=== PATIENT | male | born 1975 | race Caucasian/White ===

== ENCOUNTER 2016-12-25 20:50 | Emergency (ER) | payer MEDICAID, OTHER ==
[2016-12-25 23:27] VITALS: BP 147/82; PULSE 67; TEMP 98.9
[2016-12-25] MEDS ORDERED: LIDOCAINE 1% (MDV) 20 ML INJ SC ONE (23:30)
[2016-12-25] MEDS ORDERED: DIPHTH/TET/ACEL PERTUSS (ADULT) 0.5 ML VIAL IM* ONE (23:30)
--- NOTE | 2016-12-26 01:26 | RADRPT ---
PROCEDURE: CT Brain without contrast. CLINICAL INDICATION: Trauma, headache. TECHNIQUE: A CT of the brain was performed utilizing axial sections from the skull base through th e vertex without contrast. Multiplanar re-formations were generated. Images were reviewed on a high- resolution PACS workstation. CTDIvol: 45.01 mGy. DLP: 720.23 mGy-cm. One or more of the following dose reduction techniques were used: - Automated exposure control. - Adjustment of the mA and/or kV according to patient size. - Use of iterative reconstruction technique. COMPARISON: None available FINDINGS: The sulci are normal size for the patient's age. No hydrocephalus is seen. There is no mass effect. No acute intracranial hemorrhage is identified. There is no extra-axial collection. Evans-white mann er differentiation is preserved. There is mild mucosal disease in the paranasal sinuses. The visualized mastoid air cells are clear. The ossesous structures are unremarkable. There is soft tissue swelling along both sides of the fac e and anterior calvarium. IMPRESSION: 1. No acute intracranial pathology. RPTAT: HTAR .Vicente Ruiz MD, Date Time Electronically viewed and signed by .Vicente Ruiz MD, MD on 12/26/2016 01:25 .R/
--- NOTE | 2016-12-26 01:30 | RADRPT ---
PROCEDURE: CT scan facial bones CLINICAL INDICATION: Trauma, facial pain. TECHNIQUE: A CT of the facial bones was performed without intravenous contrast. Coronal and sagitt al reformats were generated. CTDIvol: 29.44 mGy. DLP: 561.98 mGy-cm. One or more of the following dose reduction techniques were used: - Automated exposure control. - Adjustment of the mA and/or kV according to patient size. - Use of iterative reconstruction technique. COMPARISON: Brain CT performed concurrently. FINDINGS: There is soft tissue swelling along both sides of the face, left more than right. Most of the patie nt's teeth are absent. Numerous dental caries and periapical lucencies are seen along the remaining dentition. There is no facial fracture. The intraorbital structures are normal. There is mild to m oderate mucosal thickening in the paranasal sinuses. The nasal cavity is clear. The visualized intra cranial soft tissues are within normal limits. IMPRESSION: 1. No facial fracture. 2. Numerous dental caries and periapical lucencies along the patient's remaining teeth. Referral to dentistry is recommended. RPTAT: HTAR .Vicente Ruiz MD, Date Time Electronically viewed and signed by .Vicente Ruiz MD, MD on 12/26/2016 01:29 .R/
--- NOTE | 2016-12-26 01:31 | RADRPT ---
PROCEDURE: CT cervical spine without contrast. CLINICAL INDICATION: Trauma, neck pain. TECHNIQUE: A CT of the cervical spine was performed without intravenous contrast. Coronal and sag ittal reformats were generated. CTDIvol: 22.32 mGy. DLP: 580.02 mGy-cm. One or more of the following dose reduction techniques were used: - Automated exposure control. - Adjustment of the mA and/or kV according to patient size. - Use of iterative reconstruction technique. COMPARISON: None. FINDINGS: There is reversal of the cervical lordosis. No spondylolisthesis is seen. The vertebral body height s are maintained. No fracture or subluxation is seen. The prevertebral soft tissues are normal. There is no significant degenerative change. The soft tissue structures of the neck are unremarkable. IMPRESSION: 1. No fracture or subluxation of the cervical spine. RPTAT: HTAR .Vicente Ruiz MD, Date Time Electronically viewed and signed by .Vicente Ruiz MD, on 12/26/2016 01:31 .R/
[2016-12-26] MEDS ORDERED: CEPH-443 PO (02:12)
[2016-12-26] MEDS ORDERED: ACET500C5 PO (02:12)
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
== END 2016-12-26 02:30 | disposition home or self-care (01) ==
LOC: FTE 20:50
DX: S09.93XA Unspecified injury of face, initial encounter (principal); S01.112A Laceration without foreign body of left eyelid and periocular area, initial encounter; F17.210 Nicotine dependence, cigarettes, uncomplicated; Y08.89XA Assault by other specified means, initial encounter; Z23 Encounter for immunization
CPT/HCPCS: 12011; 70450; 70486; 72125; 90471; 90715; Z7502; Z7610

== ENCOUNTER 2016-12-29 19:53 | Emergency (ER) | payer MEDICAID ==
[~2016-12-29] VITALS: Ht 170.2 cm; Wt 65.0 kg
[~2016-12-29 19:53] MED LIST: ACET500C5 PO; CEPH-443 PO
[2016-12-29 19:55] VITALS: Ht 170.2 cm; Wt 65.0 kg
--- NOTE | 2016-12-29 23:56 | RADRPT ---
PROCEDURE: XR Lumbar Spine. CLINICAL INDICATION: Pain. TECHNIQUE: Three views of the lumbar spine are available for review COMPARISON: None available FINDINGS: No fracture is identified. There is maintenance of height of the vertebral bodies. Alignment is ma intained; there is no spondylolisthesis. Pedicles are intact. No degenerative changes are identifi ed. Bony mineralization is within normal limits. Soft tissues are unremarkable. IMPRESSION: 1. Unremarkable lumbar spine x-ray series. RPTAT: HMVK .Thompson Cuenca MD, Date Time Electronically viewed and signed by .Thompson Cuenca MD, on 12/29/2016 23:55 .K/
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
== END 2016-12-30 00:58 | disposition home or self-care (01) ==
LOC: FTE 19:53
DX: M54.5 Low back pain (principal); F17.210 Nicotine dependence, cigarettes, uncomplicated
CPT/HCPCS: 72100; Z7502

== ENCOUNTER 2017-10-21 16:12 | Inpatient (IN) | END 2017-10-24 14:00 | disposition home or self-care (01) | DRG 872 ==